=== PATIENT | female | born 1995 | race Caucasian/White ===

== ENCOUNTER → 2021-07-26 | Outpatient (CLI) | payer OTHER ==
[~2021-07-26] MED LIST: ASPIRIN CHEWABL81 MG PO; B12 IM; FEOSOL325 MG PO; IRON; PRENATAL VITAM1 EAC5 PO; PRENATAL VITAM1 EAC6 PO
[2021-07-27 08:13] LABS: HBSAG SCREEN Negative (Negative); HCV AB <0.1 (0.0-0.9); HEP B CORE AB, TOT Negative (Negative)
[2021-07-27 13:14] LABS: RHEUMATOID ARTHRITIS FACTOR <10.0 IU/mL (0.0-13.9)
== END ==
LOC: LAB 10:15
PROVIDERS: Internal Medicine
DX: M46.1 Sacroiliitis, not elsewhere classified (principal); D89.89 Other specified disorders involving the immune mechanism, not elsewhere classified; R76.0 Raised antibody titer; M25.50 Pain in unspecified joint; Z79.899 Other long term (current) drug therapy; M53.3 Sacrococcygeal disorders, not elsewhere classified
CPT/HCPCS: 36415; 72202; 81374; 82728; 83520; 85652; 86140; 86200; 86431; 86704; 86803; 87340